=== PATIENT | female | born 1970 | race Caucasian/White ===

== ENCOUNTER 2021-02-01 10:27 | Outpatient (REF) | payer OTHER, SELFPAY ==
[2021-02-01 10:34] LABS: MANUAL DIFF FLAG NO
[2021-02-01 10:38] LABS: Basophils Percent Auto 0.7 % (0-2); Eosinophils Absolute Auto 0.3 X10*3/uL (0.0-0.4); Eosinophils Percent Auto 4.6 % (0-4); Hematocrit 42.3 % (37-47); Hemoglobin 14.4 g/dl (12.0-16.0); Imm Gran Abs Auto 0.02 X10*3/uL (0.00-0.03); Imm Gran Pct Auto 0.4 % (0.0-0.4); Lymphocytes Absolute Auto 1.7 X10*3/uL (1.2-4.9); Lymphocytes Percent Auto 30.5 % (20-40); Mean Corpuscular Hemoglobin 30.3 pg (27.0-33.0); Mean Corpuscular Volume 89.1 fL (80-98); Mean Platelet Volume 10.9 fL (9.4-12.3); Monocytes Absolute Auto 0.4 X10*3/uL (0.1-1.2); Monocytes Percent Auto 7.9 % (2-11); Neutrophils Absolute Auto 3.1 X10*3/uL (2.0-8.3); Neutrophils Percent Auto 55.9 % (45-73); Platelet Count 241 X10*3/uL (160-400); Red Blood Count 4.75 X10*6/uL (4.20-5.50); Red Cell Distribution Width 11.7 % (11.0-16.0); White Blood Count 5.5 X10*3/uL (4.8-10.8)
[2021-02-01 10:53] LABS: Glucose Urine UA NEG (NEG); Leukocyte Esterase Urine NEG (NEG); Nitrite Urine NEG (NEG); Specific Gravity - Urine 1.025 (1.005-1.025); Urine Blood NEG (NEG); Urine Ketones NEG (NEG); Urine Protein NEG (NEG-TRACE)
[2021-02-01 11:10] LABS: Appearance Urine CLEAR; Color Urine YELLOW
[2021-02-01 11:24] LABS: Alanine Aminotransferase 18 U/L (0-31); Albumin Level 4.4 g/dL (3.5-5.0); Alkaline Phosphatase 57 U/L (39-117); Anion Gap 13 (12-20); Aspartate Amino Transferase 16 U/L (5-31); Bilirubin Total 0.6 mg/dL (0.0-1.0); Blood Urea Nitrogen 14 mg/dL (9-16); Calcium 8.8 mg/dL (8.4-10.2); Carbon Dioxide 24 mmol/L (22-29); Chloride 107 mmol/L (96-108); Cholesterol 212 mg/dL; Estimated Glomerular Filt Rate > 60; Glucose Fasting 107 mg/dL (60-99); HDL Cholesterol 57 mg/dL; LDL Cholesterol Calculated 134 mg/dl; Sodium 140 mmol/L (135-145); Total Protein 6.7 g/dL (6.5-8.0); Triglycerides 107 mg/dL
== END 2021-02-01 10:28 | disposition home or self-care (01) ==
LOC: HO.LNP 10:27
PROVIDERS: PCP Internal Medicine; Visit Provider Internal Medicine
DX: Z00.00 Encounter for general adult medical examination without abnormal findings (principal)
CPT/HCPCS: 80053; 80061; 81003; 85025

== ENCOUNTER 2022-02-10 10:48 | Outpatient (REF) | payer OTHER, SELFPAY ==
[2022-02-10 10:54] LABS: MANUAL DIFF FLAG NO
[2022-02-10 11:42] LABS: Basophils Percent Auto 0.8 % (0-2); Eosinophils Absolute Auto 0.2 X10*3/uL (0.0-0.4); Eosinophils Percent Auto 4.9 % (0-4); Hematocrit 43.7 % (37.0-47.0); Hemoglobin 14.6 g/dl (12.0-16.0); Imm Gran Abs Auto 0.01 X10*3/uL (0.00-0.03); Imm Gran Pct Auto 0.3 % (0.0-0.4); Lymphocytes Absolute Auto 1.4 X10*3/uL (1.2-4.9); Lymphocytes Percent Auto 38.5 % (20-40); Mean Corpuscular HGB Conc 33.4 g/dl (31.0-35.0); Mean Corpuscular Hemoglobin 30.4 pg (27.0-33.0); Mean Corpuscular Volume 90.9 fL (80.0-98.0); Mean Platelet Volume 11.1 fL (9.4-12.3); Monocytes Absolute Auto 0.3 X10*3/uL (0.1-1.2); Monocytes Percent Auto 7.9 % (2-11); Neutrophils Absolute Auto 1.7 x10*3/uL (2.0-8.3); Neutrophils Percent Auto 47.6 % (45-73); Platelet Count 214 X10*3/uL (160-400); Red Blood Count 4.81 X10*6/uL (4.20-5.50); White Blood Count 3.7 X10*3/uL (4.8-10.8)
[2022-02-10 11:43] LABS: Appearance Urine CLEAR; Color Urine YELLOW; Glucose Urine UA NEG (NEG); Leukocyte Esterase Urine 1+ (NEG); Nitrite Urine NEG (NEG); Specific Gravity - Urine 1.025 (1.005-1.025); Urine Blood NEG (NEG); Urine Ketones NEG (NEG); Urine Protein NEG (NEG-TRACE)
[2022-02-10 11:52] LABS: Alanine Aminotransferase 24 U/L (0-31); Albumin Level 4.3 g/dL (3.5-5.0); Alkaline Phosphatase 49 U/L (39-117); Anion Gap 10 (12-20); Aspartate Amino Transferase 18 U/L (5-31); Bilirubin Total 0.9 mg/dL (0.0-1.0); Blood Urea Nitrogen 14 mg/dL (9-16); Calcium 9.5 mg/dL (8.4-10.2); Carbon Dioxide 27 mmol/L (22-29); Chloride 107 mmol/L (96-108); Cholesterol 221 mg/dL; Estimated Glomerular Filt Rate > 60; Glucose Fasting 109 mg/dL (60-99); HDL Cholesterol 49 mg/dL; LDL Cholesterol Calculated 155 mg/dl; Potassium 4.1 mmol/L (3.3-5.1); Sodium 140 mmol/L (135-145); Total Protein 6.7 g/dL (6.5-8.0); Triglycerides 87 mg/dL
[2022-02-10 12:13] LABS: Squamous Epithelial Cell Urine 2+ /LPF
[2022-02-10 12:14] LABS: Bacteria Urine 2+ /LPF
[2022-02-10 12:15] LABS: RBC Urine 0 /HPF (0)
== END 2022-02-10 10:49 | disposition home or self-care (01) ==
LOC: HO.LNP 10:48
PROVIDERS: Visit Provider Internal Medicine
DX: Z00.00 Encounter for general adult medical examination without abnormal findings (principal); I47.2 Ventricular tachycardia
CPT/HCPCS: 80053; 80061; 81001; 81003; 85025

== ENCOUNTER 2023-06-01 10:50 | Outpatient (REF) | payer OTHER, SELFPAY ==
[2023-06-01 10:53] LABS: MANUAL DIFF FLAG NO
[2023-06-01 11:24] LABS: Appearance Urine Clear; Color Urine Yellow; Glucose Urine UA Negative (Negative); Leukocyte Esterase Urine Trace (Negative); Nitrite Urine Negative (Negative); UMIC TRIGGER UACC YES; Urine Blood Negative (Negative); Urine Ketones Negative (Negative); Urine Protein Negative (Neg-Trace)
[2023-06-01 11:28] LABS: Bacteria Urine None Seen (None Seen); Basophils Percent Auto 0.7 % (0-2); Eosinophils Absolute Auto 0.2 X10*3/uL (0.0-0.4); Eosinophils Percent Auto 4.6 % (0-4); Hematocrit 43.7 % (37.0-47.0); Hemoglobin 14.4 g/dl (12.0-16.0); Hyaline Casts Urine 0-2 /LPF (0-2); Imm Gran Abs Auto 0.01 X10*3/uL (0.00-0.03); Imm Gran Pct Auto 0.2 % (0.0-0.4); Lymphocytes Absolute Auto 1.5 X10*3/uL (1.2-4.9); Lymphocytes Percent Auto 33.2 % (20-40); Mean Corpuscular Hemoglobin 30.1 pg (27.0-33.0); Mean Corpuscular Volume 91.2 fL (80.0-98.0); Mean Platelet Volume 11.5 fL (9.4-12.3); Monocytes Absolute Auto 0.4 X10*3/uL (0.1-1.2); Monocytes Percent Auto 8.1 % (2-11); Neutrophils Absolute Auto 2.4 x10*3/uL (2.0-8.3); Neutrophils Percent Auto 53.2 % (45-73); Platelet Count 200 X10*3/uL (160-400); RBC Urine 0-2 /HPF (0-2); Red Blood Count 4.79 X10*6/uL (4.20-5.50); Red Cell Distribution Width 11.9 % (11.0-16.0); Squamous Epithelial Cell Urine 0-2 /HPF (0-2); WBC Urine 0-5 /HPF (0-5); White Blood Count 4.6 X10*3/uL (4.8-10.8)
[2023-06-01 12:26] LABS: Alanine Aminotransferase 14 U/L (0-31); Albumin Level 4.3 g/dL (3.5-5.0); Alkaline Phosphatase 48 U/L (39-117); Anion Gap 11 (12-20); Aspartate Amino Transferase 15 U/L (5-31); Bilirubin Total 0.4 mg/dL (0.0-1.0); Blood Urea Nitrogen 16 mg/dL (9-16); Calcium 9.8 mg/dL (8.4-10.2); Carbon Dioxide 28 mmol/L (22-29); Chloride 107 mmol/L (96-108); Cholesterol 193 mg/dL; Estimated Glomerular Filt Rate > 60; Glucose Fasting 109 mg/dL (60-99); HDL Cholesterol 55 mg/dL; LDL Cholesterol Calculated 121 mg/dl; Potassium 4.6 mmol/L (3.3-5.1); Sodium 141 mmol/L (135-145); Total Protein 6.8 g/dL (6.5-8.0); Triglycerides 86 mg/dL
== END 2023-06-01 10:51 | disposition home or self-care (01) ==
LOC: HO.LNP 10:50
PROVIDERS: Visit Provider Internal Medicine
DX: Z00.00 Encounter for general adult medical examination without abnormal findings (principal); D70.9 Neutropenia, unspecified
CPT/HCPCS: 80053; 80061; 81001; 85025

== ENCOUNTER 2024-06-03 10:35 | Outpatient (REF) | payer OTHER, SELFPAY ==
[2024-06-03 10:37] LABS: MANUAL DIFF FLAG NO
[2024-06-03 10:43] LABS: Basophils Percent Auto 0.5 % (0-2); Eosinophils Absolute Auto 0.4 X10*3/uL (0.0-0.4); Eosinophils Percent Auto 6.7 % (0-4); Hematocrit 42.7 % (37.0-47.0); Hemoglobin 14.4 g/dl (12.0-16.0); Imm Gran Abs Auto 0.01 X10*3/uL (0.00-0.03); Imm Gran Pct Auto 0.2 % (0.0-0.4); Lymphocytes Absolute Auto 1.5 X10*3/uL (1.2-4.9); Mean Corpuscular HGB Conc 33.7 g/dl (31.0-35.0); Mean Corpuscular Hemoglobin 30.2 pg (27.0-33.0); Mean Corpuscular Volume 89.5 fL (80.0-98.0); Mean Platelet Volume 10.9 fL (9.4-12.3); Monocytes Absolute Auto 0.5 X10*3/uL (0.1-1.2); Monocytes Percent Auto 7.9 % (2-11); Neutrophils Absolute Auto 3.5 x10*3/uL (2.0-8.3); Neutrophils Percent Auto 59.7 % (45-73); Platelet Count 235 X10*3/uL (160-400); Red Blood Count 4.77 X10*6/uL (4.20-5.50); Red Cell Distribution Width 12.6 % (11.0-16.0); White Blood Count 5.8 X10*3/uL (4.8-10.8)
[2024-06-03 10:53] LABS: Appearance Urine Cloudy; Color Urine Yellow; Glucose Urine UA Negative (Negative); Leukocyte Esterase Urine Moderate (2+) (Negative); Nitrite Urine Negative (Negative); PH 6.5 (5.0-9.0); UMIC TRIGGER UACC YES; Urine Blood Negative (Negative); Urine Ketones Negative (Negative); Urine Protein Negative (Neg-Trace)
[2024-06-03 10:57] LABS: Bacteria Urine Trace (None Seen); Hyaline Casts Urine 0-2 /LPF (0-2); RBC Urine 0-2 /HPF (0-2); UACC Culture Trigger YES
[2024-06-03 10:59] LABS: Alanine Aminotransferase 23 U/L (0-31); Albumin Level 4.4 g/dL (3.5-5.0); Alkaline Phosphatase 65 U/L (39-117); Anion Gap 11 (12-20); Aspartate Amino Transferase 19 U/L (5-31); Bilirubin Total 0.7 mg/dL (0.0-1.0); Blood Urea Nitrogen 9 mg/dL (9-16); Calcium 10.1 mg/dL (8.4-10.2); Carbon Dioxide 29 mmol/L (22-29); Chloride 106 mmol/L (96-108); Cholesterol 203 mg/dL (<200); Estimated Glomerular Filt Rate > 60; Glucose Random 104 mg/dL (60-115); HDL Cholesterol 60 mg/dL (>40); LDL Cholesterol Calculated 122 mg/dL (<100); Potassium 4.1 mmol/L (3.3-5.1); Sodium 142 mmol/L (135-145); Total Protein 6.6 g/dL (6.5-8.0); Triglycerides 108 mg/dL (<150)
== END 2024-06-03 10:36 | disposition home or self-care (01) ==
LOC: HO.LNP 10:35
PROVIDERS: Visit Provider Internal Medicine
DX: Z00.00 Encounter for general adult medical examination without abnormal findings (principal); D70.9 Neutropenia, unspecified
CPT/HCPCS: 80053; 80061; 81001; 85025; 87086

== ENCOUNTER 2024-11-08 10:55 | Outpatient (AMB) | payer MEDICARE, SELFPAY ==
--- NOTE | 2024-11-08 11:01 | A.OFFVIS_ITS ---
Vital Signs 11/08/24 11:07 Height 5 ft 1 in Weight 130 lb 1.164 oz BMI 24.6 BP 124/76 Blood Pressure Location Rt brachial Position Sitting Pulse 60 Pulse Source Pulse Oximeter Pulse Oximetry (%) 99 Oxygen Delivery Method Room Air Intake Visit Reasons: Routine colo consult Intake Note: NEW PATIENT Reason; Routine/Initial Screening Prior hx of colo/egd? N Concerns/Questions? No significant concerns per pt. Allergies No Known Allergies Allergy (Verified 11/08/24 11:01) HPI HPI Routine colo consult: Details: 54 year old? female with past medical history of asthma, solitary kidney is here today for pre colonoscopy screening.? Patient was sent to us by his/her PCP.? This is her first colonoscopy screening.? Patient denies any gastrointestinal symptoms in the past or at present.? Denies any personal or family history of gastrointestinal disease, colon polyps, or CRC.? History of tachycardia after anesthesia. Patient does not remember what medication she received.? Negative for history of sleep apnea.? Denies any history of cardiac, pulmonary, or hepatic disease.?? No history of infectious? diseases like hepatitis A, B, C, HIV or tuberculosis.? Patient is not on any anticoagulation [facility] Medical History (Updated 11/08/24 @ 11:29 by Mary Jane Garcia [facility]) Solitary kidney, congenital Asthma Surgical History History of lithotripsy H/O section Social History Alcohol intake: current Comment: 2-3 / week Patient Tobacco Use Status: Never used Tobacco Use of substances other than those prescribed or required for medical reasons: No Physical Exam Vital Signs: Last Vital Signs Pulse 60 11/08/24 11:07 BP 124/76 11/08/24 11:07 Pulse Ox 99 11/08/24 11:07 Oxygen Delivery Method Room Air 11/08/24 11:07 BMI result Body Mass Index 22.5 Assessment & Plan Assessment & Plan (1) Screen for colon cancer: Code(s): Z12.11 - Encounter for screening for malignant neoplasm of colon Plan Patient denies any GI, cardiac or respiratory symptoms.? ? Denies any history of sleep apnea.? No history infectious diseases in the past or present.? Not on any anticoagulation therapy.? No family or personal history of colon cancer or polyps.? Patient denies melena, hematochezia, unintentional weight loss or ribbon like stools.? Discussed at length the pre-procedure,? prep, diet & medications as well as what to expect prior, during and after the procedure.?? Stressed the importance of good bowel prep.? Recommended the use of Vaseline or Calmoseptine OTC & baby wipes with bowel movements to promote comfort.? ?Patient verbalizes understanding and agrees to plan of care.? She was given the opportunity to ask questions and all questions answered.? We will see her after the procedure.? Medications: New bisacodyl (Dulcolax (bisacodyl)) take 4 tabs at noon the day before your colonoscopy 20 mg (4 x 5 mg) PO ONCE 1 day 4 tabs 0RF Z12.11 - Encounter for screening for malignant neoplasm of colon polyethylene glycol 3350 (Miralax) As directed by gastroenterology department at [facility] 238 grams PO ONCE 238 grams 0RF Z12.11 - Encounter for screening for malignant neoplasm of colon Coding Level of Care Code New Pt Level 3 (48869) Diagnoses Screen for colon cancer Z12.11 Time Spent (min) 40 Comment 30 minutes spent with patient and additional 10 minutes spent reviewing her records
[2024-11-08 11:07] VITALS: BP 124/76; PULSE 60; O2SAT 99; BMI 24.6
== END 2024-11-08 14:19 | disposition home or self-care (01) ==
PROVIDERS: PCP Internal Medicine; Visit Provider Nurse Practitioner Family
DX: Z01.818 Encounter for other preprocedural examination (principal); Z12.11 Encounter for screening for malignant neoplasm of colon
CPT/HCPCS: 99024

== ENCOUNTER → 2024-11-08 10:55 | Outpatient (BNVA) | payer MEDICARE, SELFPAY | PROVIDERS: PCP Internal Medicine; Visit Provider Nurse Practitioner Family | DX: Z12.11 Encounter for screening for malignant neoplasm of colon (principal) | CPT/HCPCS: 99212 ==

== ENCOUNTER 2025-08-08 09:52 | Outpatient (REF) | payer MEDICARE, SELFPAY ==
--- OUTSIDE RECORDS SUMMARY | 2023-06-11 10:54 | XMS_ITS | Encounter Summary ---
Author Organization [facility] Address [address] [facility] [address] [place] [phone] Phone Care Team Providers Care Fabric Normalizer Name Role Phone Shahriar Wheeler MD Primary Care Provider Encounter Details Date Type Department Care Team (Late st Contact Info) Description 06/11/2023 10:54 AM EDT Hospital Encounter [facility] [address] [place] [address] [phone] Niharika Rm PA-C [address] [place] [phone] Social History Tobacco Use Types Packs/Day Years Used Date Smoking Tobacco: Never Assessed Education Answer Date Recorded Are you interested in more education? Not on alisha e 02/18/2023 Are you concerned about learning? Not on file 02/18/2023 No 02/18/2023 No 02/18/2023 Digital Access Answer Date Recorded No 03/19/2023 No 03/19/2023 Reliable internet access at home? Not on file 03/19/2023 Device with a working camera? Not on file Comments Unknown Sex and Gender Information Value Date Recorded Sex Assigned at Not on file Legal Sex Female 9:38 AM EDT Gender Identity Not on file Sexual Orientation Not on file documented as of this encounter Plan of Treatment Not on file documented as of this encounter Procedures Procedure Name Priority Date/Time Associated Diagnosis Comments XR CHEST PA AND LATERAL 2 VIEWS Routine 06/11/2023 11:01 AM EDT Acute respiratory distress documented in this encounter Results * XR CHEST PA AND LATERAL 2 VIEWS (06/11/2023 11:01 AM EDT) Anatomical Region Laterality Modality Chest Computed Radiogr aphy 06/11/2023 11:3 0 AM EDT Impressions 06/11/2023 11:33 AM EDT No acute abnormality. ATTESTATION: Fanny Romero as teaching physician, have reviewed the images for this case and if necessary edited the report originally created by Ron Loza. Narrative 06/11/2023 11:33 AM EDT XR CHEST PA AND LATERAL 2 VIEWS COMPARISON: None FINDINGS: Devices/Tubes/Lines: None. Lungs: No focal consolidation or pulmonary edema. Pleura: No pleural effusion or pneumothorax. Heart/Mediastinum: Normal heart size. Bones/Soft Tissues: No acute skeletal abnormality. Procedure Note Fanny Troy MD - 06/11/2023 XR CHEST PA AND LATERAL 2 VIEWS COMPARISON: None FINDINGS: Devices/Tubes/Lines: None. Lungs: No focal consolidation or pulmonary edema. Pleura: No pleural effusion or pneumothorax. Heart/Mediastinum: Normal heart size. Bones/Soft Tissues: No acute skeletal abnormality. IMPRESSION: No acute abnormality. ATTESTATION: Fanny Romero as teaching physician, have reviewed theimages for this case and if necessary edited the report originally createdby Ron Loza. Niharika Rm PA-C IMG XR CHEST Final Resul t documented in this encounter Visit Diagnoses Not on filedocumented in this encounter Care Teams Fabric Normalizer Relationship Specialty Start Date End Date Shahriar Wheeler MD [address] [place] [address] Dr Sánchez, JEREMY [address] PCP - General Internal Medicine 03/20/22 documented as of this encounter Additional Source Comments The information contained in this document represents components of the legal health record. It is not the complete legal health record.[facility]
--- OUTSIDE RECORDS SUMMARY | 2024-06-03 03:15 | XMS_ITS ---
Author Organization Shahriar Wheeler MD Address [address] [place], [place] [phone] Care Team Providers Care Chicken Boner Name Role Phone Shahriar Wheeler Primary Care Provider Results Component Value Reference Range Notes Complete Blood Count Auto Di ff Reviewed date:06/03/2024 12:47:21 PM Interpretation: Performing Lab:[facility], [address] [place] [phone] Notes/Report: White Blood Count 5.8 4.8-10.8 X10*3/uL Red Blood Count 4.77 4.20-5.50 X10*6/uL Hemoglobin 14.4 12.0-16.0 g/dl Hematocrit 42.7 37.0-47.0 % Mean Corpuscular Volume 89.5 80.0-98.0 fL Mean Corpuscular Hemoglobin 30.2 27.0-33.0 pg Mean Corpuscular HGB Conc 33.7 31.0-35.0 g/dl Red Cell Distribution Width 12.6 11.0-16.0 % Platelet Count 235 160-400 X10*3/uL Mean Platelet Volume 10.9 9.4-12.3 fL Neutrophils Percent Auto 59.7 45-73 % Imm Gran Pct Auto 0.2 0.0-0.4 % Lymphocytes Percent Auto 25.0 20-40 % Monocytes Percent Auto 7.9 2-11 % Eosinophils Percent Auto 6.7 0-4 % Basophils Percent Auto 0.5 0-2 % NRBC Pct Auto 0.0 0.0-0.2 /100WBC Neutrophils Absolute Auto 3.5 2.0-8.3 x10*3/u L Imm Gran Abs Auto 0.01 0.00-0.03 X10*3/uL Lymphocytes Absolute Auto 1.5 1.2-4.9 X10*3/u L Monocytes Absolute Auto 0.5 0.1-1.2 X10*3/uL Eosinophils Absolute Auto 0.4 0.0-0.4 X10*3/u L Basophils Absolute Auto 0.0 0.0-0.2 X10*3/uL NRBC Abs Auto 0.000 0.0-0.012 X10*3/uL Lipid Panel Reviewed date:06/03/2024 12:40:27 PM Interpretation: Performing Lab:[address] [phone] Notes/Report: Triglycerides 108 <150 mg/dL Desirable Triglyceride: less than 150 mg/dL Borderline High Triglyceride 150-199 mg/dL High Triglyceride: 200-499 mg/dL Very High Triglyceride: greater than or equal to 5OO mg/dL Cholesterol 203 <200 mg/dL Desirable Cholesterol: less than 200 mg/dL Borderline High Cholesterol: 200-239 mg/dL High Cholesterol: greater than 239 mg/dL LDL Cholesterol Calculated 122 <100 mg/dL Desirable LDL: less than 100 mg/dL Near Optimal/Above Optimal LDL: 110-129 mg/dL Borderline High LDL: 130-159 mg/dL High LDL: 160-189 mg/dL Very High LDL: greater than or equal to 190 mg/dL HDL Cholesterol 60 >40 mg/dL Desirable HDL: greater than 40 mg/dL Note: This HDL assay may give artificially low results in patients with liver disease. UA ClnCatch+Micro w/rflx Cul t Reviewed date:06/03/2024 05:00:21 PM Interpretation: Performing Lab:[address] [phone] Notes/Report: Urine, Clean Catch Color Urine Yellow Appearance Urine Cloudy PH 6.5 5.0-9.0 Glucose Urine UA Negative Negative mg/dL Urine Blood Negative Negative Specific [place] - Urine 1.020 1.005-1.025 Urine Protein Negative Neg-Trace mg/dL Urine Ketones Negative Negative mg/dL Nitrite Urine Negative Negative Leukocyte Esterase Urine Moderate (2+) Negative RBC Urine 0-2 0-2 /HPF WBC Urine 11-20 0-5 /HPF Squamous Epithelial Cell Urine 3-5 0-2 /HPF Bacteria Urine Trace None Seen Hyaline Casts Urine 0-2 0-2 /LPF REASON FOR VISIT yearly labs Encounters Encounter Location Date Provider Diagnosis Shahriar Wheeler MD [address] [place], [place] [phone] 06/03/2024 Shahriar Wheeler Blood tests for routine general physical examination Z00.00 and Neutropenia D70.9 Assessments Encounter Date Diagnosis (ICD Code) Assessment Notes Treatment Notes Treatment Clinical Notes Section Notes 06/03/2024 Blood tests for routine general physical examination (ICD-10 - Z00.00) 06/03/2024 Neutropenia (ICD-10 - D70.9) Plan Of Treatment Next Appt Details Provider Name:Shahriar Lagunas ier, 08/19/2025 02:30:00 PM, [address], [address], [place], [place], [phone], Progress Notes * Imelda CORREA SDOB:1969 (55 yo F)Acc No.[id number]:06/03/2024 Progress Note Patient: Imelda FISHER Provider: Kitty Wheeler MD :1970 A ge:53 Y S ex:Female Date:06/03/2024 Address: [address], [place], [id number] Subjective: * Chief Complaints: * 1 . Yearly labs. * Medical History: Objective: * Vitals: Assessment: * Assessment: 1. B lood tests for routine general physical examination - Z00.00 (Primary) 2 .?Neutropenia - D70.9 Plan: * Treatment: 2. N eutropenia L AB: Comprehensive Tucker. Panel Fast (Order Cancelled) L AB: Complete Blood Count Auto Diff (Collection Date & Time - 06/03/2024 07:15 AM) L AB: Lipid Panel (Collection Date & Time - 06/03/2024 07:15 AM) L AB: UA ClnCatch+Micro w/rflx Cult (Collection Date & Time - 06/03/2024 07:15 AM) * Procedure Codes: 3 6415 VENIPUNCT, ROUTINE* * * The named appointment provid er may or may not be the originator of this progress note, and it is not deemed complete until electronically signed by the appointment provider. Sign off status: Pending * Provider: Kitty Wheeler MD Date: 0 06/03/2024 Generated for Luz Marina floyd/Maria Dolores/Wendy on: 1 11:29 AM EDT
--- OUTSIDE RECORDS SUMMARY | 2024-06-21 10:30 | XMS_ITS ---
Author Organization Shahriar Wheeler MD Address [address] [place] [id number] Care Team Providers Care Stereotype Molder Name Role Phone Shahriar Wheeler Primary Care Provider [phone] Allergies No Known Allergies Reason For Referral [...] Haskins 07/08/2024 08:26:45 AM EDT > [facility] , they reached out to cynthia [...] Problem Status W/U Status Risk Notes Problem [id number] Hot flashes due to menopause (N95.1) Active confirmed Vital Signs Blood pressure systolic 124 mm Hg 06/21/20 24 Blood pressure diastolic 70 mm Hg 024 Height 61 in 06/21/2024 Weight 130 lbs 06/21/2024 BMI 24.56 kg/m2 06/21/2024 weight is up 10 pounds since 06-15-23 Encounters Encounter Location Date Provider Diagnosis Shahriar Wheeler MD [address] [place] [address] Drive [address] [place], [place] [id number] 06/21/2024 Shahriar Wheeler Annual physical exam Z00.00 [...] for colonoscopy in winter/ REFERRAL FAXED TO [facility] FOR NEW PATIENT APPT 06/21/2024 Mild intermittent asthma with acute exacerbation (ICD-10 - J45.21) no issues, is stable, will continue current regiment 06/21/2024 At high risk for breast cancer (ICD-10 - Z91.89) [facility] with mri and mammo 06/21/2024 Hot flashes [...] for colonoscopy in winter/ REFERRAL FAXED TO [facility] FOR NEW PATIENT APPT Mild intermittent asthma wit h acute exacerbation no issues, is stable, will continue current regiment At high risk for breast cancer followed at [facility] with mri and mammo Hot flashes due to menopause can't take estrogen but if she wants will try gabapentin Depression screening negative screen Referrals Referral Date Details 06/21/2024 06/21/2024, SCREEN F OR COLON CANCER, [facility] Next Appt Details Follow Up: 1 Year, Reason: Provider Name:Shahriar salomon, 08/19/2025 02:30:00 PM, [address] [place] [address], [address], [place], [place], [id number], Progress Notes * Imelda CORREA SDOB:1969 (53 yo F)Acc No.[id number]:06/21/2024 Progress Notes Patient: Georgia russellsilvia Imelda Israel Provider: Kitty Wheeler MD :1970 A ge:53 Y S ex:Female Date:06/21/2024 Address:[address], [place], [id number] Subjective: * Chief Complaints: * A nnual [...] T obacco Use: T obacco Use/Smoking P atlexis is a n onsmoker, A dditional Findings: [...] Children: yes. no Community involvements. Exercise: yes, iking, [place] for 30 minutes cycling class cardio class. [...] mg/dL Urine Blood Negative Negative - Specific [place] - Urine 1.020 1.005-1.025 - Urine Protein [...] masses palpable. RECTAL EXAM: d one by metal temperer. FEMALE GENITOURINARY: d one by metal temperer. EXTREMITIES: n o clubbing, cyanosis, or edema. [...] risk for breast cancer Notes: followed at [facility] with mri and mammo. 4. H ot [...] 0 06/21/2024 Generated for Luz Marina floyd/Maria Dolores/Markitting on: 11:29 AM EDT History and Physical Notes * HPI [...] mass, no lump RECTAL EXAM: done by metal temperer FEMALE GENITOURINARY: done by metal temperer ORAL CAVITY: mucosa moist Consultation Request Notes Referral Date Referring Provider Referred Provider Not es 06/21/2024 Shahriar Wheeler Tuyyab SCREEN FO R COLON CANCER
--- OUTSIDE RECORDS SUMMARY | 2025-06-26 04:45 | XMS_ITS ---
Author Organization Shahriar Wheeler MD Address [address] [place], [place] [phone] Care Team Providers Care Patient Care Specialist Name Role Phone Shahriar Wheeler Primary Care Provider REASON FOR VISIT FASTING LABS Encounters Encounter Location Date Provider Diagnosis Shahriar Wheeler MD [address] [place] [address] Drive [address] [place], [place] [phone] 06/26/2025 Shahriar Wheeler Blood tests for routine general physical examination Z00.00 and Neutropenia D70.9 Assessments Encounter Date Diagnosis (ICD Code) Assessment Notes Treatment Notes Treatment Clinical Notes Section Notes 06/26/2025 Blood tests for routine general physical examination (ICD-10 - Z00.00) 06/26/2025 Neutropenia (ICD-10 - D70.9) Plan Of Treatment Pending Test Test Name Order Date Complete Blood Count Auto Diff 5 Comprehensive Oracle. Panel Fast 5 Lipid Panel 06/26/2025 UA ClnCatch+Micro w/rflx Cult 06/26/2025 Next Appt Details Provider Name:Shahriar Lagunas ier, 08/19/2025 02:30:00 PM, [address], [address], [place], [place], [phone], Progress Notes * Imelda CORREA SDOB:1969 (55 yo F)Acc No.[id number]:06/26/2025 Progress Note Patient: Imelda FISHER Provider: Kitty Wheeler MD :1970 A ge:54 Y S ex:Female Date:06/26/2025 Address: [address], [place], [id number] Subjective: * Chief Complaints: * 1 . FASTING LABS. * Medical History: Objective: * Vitals: Assessment: * Assessment: 1. B lood tests for routine general physical examination - Z00.00 (Primary) 2 .?Neutropenia - D70.9 Plan: * Treatment: 2. N eutropenia L AB: Complete Blood Count Auto Diff L AB: Comprehensive [place]. Panel Fast L AB: Lipid Panel L AB: UA ClnCatch+Micro w/rflx Cult * * The named appointment provid er may or may not be the originator of this progress note, and it is not deemed complete until electronically signed by the appointment provider. Sign off status: Pending * Provider: Kitty Wheeler MD Date: 0 06/26/2025 Generated for Luz Marina floyd/Maria Dolores/Markitting on: 1 11:29 AM EDT
--- OUTSIDE RECORDS SUMMARY | 2025-06-27 12:30 | XMS_ITS ---
Author Organization Shahriar Wheeler MD Address [address] [place], [place] [phone] Care Team Providers Care Speech And Hearing Clinic Director Name Role Phone Shahriar Wheeler Primary Care Provider Allergies No Known Allergies REASON FOR VISIT ANNUAL EXAM Social History Tobacco Use: Social History Observation [...] Never (0 point) Points 1 Interpretation Negative Encounters Encounter Location Date Provider Diagnosis Shahriar Wheeler MD [address] [place], [place] [phone] 06/27/2025 Shahriar Wheeler Plan Of Treatment Next Appt Details Provider Name:Shahriar salomon, 08/19/2025 02:30:00 PM, [address], [address], [place], [place], [phone], Progress Notes * Imelda CORREA SDOB:1969 (55 yo F)Acc No.[id number]:06/27/2025 Progress Notes Patient: Imelda FISHER Provider: Kitty Wheeler MD :1970 A ge:54 Y S ex:Female Date:06/27/2025 Address: [address], [place], [id number] Subjective: * Chief Complaints: * 1 . ANNUAL EXAM. * HPI: D epression Screening: PHQ-9 L [...] N one. S ymptom(s): patient is a 54 yo female here for annual visit with review of recent labs and follow up of chronic issues. * Medical History: H x of kidney stones, Going to get colonoscopy evan 2022. * Family History: F ather: 70 yrs, [...] frequency:, 1-2 cups per day. Children: yes. Community involvements: no. Exercise: yes, iking, [place] for 30 minutes cycling class cardio class. Home smoke detector use: yes. Housing: owning. Living with: spouse. Marital status: . Occupation: weeks/months/years, works full-time. Travel outside of the [place]: no. * Allergies: N .K.D.A. Objective: * Vitals: Assessment: Plan: * Treatment: * * The named appointment provid er may or may not be the originator of this progress note, and it is not deemed complete until electronically signed by the appointment provider. Sign off status: Pending * Provider: Kitty Wheeler MD Date: 0 06/27/2025 Generated for Luz Marina floyd/Maria Dolores/Markitting on: 1 11:29 AM EDT History and Physical Notes * HPI (History of Present Illness) Category Sub-Category Detail Notes Category Not es Symptom(s) patient is a 54 yo female here for annual visit with review of recent labs and follow up of chronic issues Depression Screening PHQ-9 Little inte rest or [...]
--- OUTSIDE RECORDS SUMMARY | 2025-08-08 04:15 | XMS_ITS ---
Author Organization Shahriar Wheeler MD Address [address] [place], [place] [phone] Care Team Providers Care Marketing Outreach Coordinator Name Role Phone Shahriar Wheeler Primary Care Provider Results Component Value Reference Range Notes Complete Blood Count Auto Di ff (Not yet reviewed by provider) Interpretation: Performing Lab:[facility], [address] [place] [phone] Notes/Report: White Blood Count 5.2 4.8-10.8 X10*3/uL Red Blood Count 5.08 4.20-5.50 X10*6/uL Hemoglobin 15.0 12.0-16.0 g/dl Hematocrit 44.9 37.0-47.0 % Mean Corpuscular Volume 88.4 80.0-98.0 fL Mean Corpuscular Hemoglobin 29.5 27.0-33.0 pg Mean Corpuscular HGB Conc 33.4 31.0-35.0 g/dl Red Cell Distribution Width 11.9 11.0-16.0 % Platelet Count 237 160-400 X10*3/uL Mean Platelet Volume 10.6 9.4-12.3 fL Neutrophils Percent Auto 54.3 45-73 % Imm Gran Pct Auto 0.4 0.0-0.4 % Lymphocytes Percent Auto 31.1 20-40 % Monocytes Percent Auto 7.8 2-11 % Eosinophils Percent Auto 5.8 0-4 % Basophils Percent Auto 0.6 0-2 % NRBC Pct Auto 0.0 0.0-0.2 /100WBC Neutrophils Absolute Auto 2.8 2.0-8.3 x10*3/u L Imm Gran Abs Auto 0.02 0.00-0.03 X10*3/uL Lymphocytes Absolute Auto 1.6 1.2-4.9 X10*3/u L Monocytes Absolute Auto 0.4 0.1-1.2 X10*3/uL Eosinophils Absolute Auto 0.3 0.0-0.4 X10*3/u L Basophils Absolute Auto 0.0 0.0-0.2 X10*3/uL NRBC Abs Auto 0.000 0.0-0.012 X10*3/uL Lipid Panel (Not yet review ed by provider) Interpretation: Performing Lab:[facility], [address] [place] [phone] Notes/Report: Triglycerides 189 <150 mg/dL Desirable Triglyceride: less than 150 mg/dL Borderline High Triglyceride 150-199 mg/dL High Triglyceride: 200-499 mg/dL Very High Triglyceride: greater than or equal to 5OO mg/dL Cholesterol 244 <200 mg/dL Desirable Cholesterol: less than 200 mg/dL Borderline High Cholesterol: 200-239 mg/dL High Cholesterol: greater than 239 mg/dL LDL Cholesterol Calculated 159 <100 mg/dL Desirable LDL: less than 100 mg/dL Near Optimal/Above Optimal LDL: 110-129 mg/dL Borderline High LDL: 130-159 mg/dL High LDL: 160-189 mg/dL Very High LDL: greater than or equal to 190 mg/dL HDL Cholesterol 48 >40 mg/dL Desirable HDL: greater than 40 mg/dL Note: This HDL assay may give artificially low results in patients with liver disease. REASON FOR VISIT Annual labs Encounters Encounter Location Date Provider Diagnosis Shahriar Wheeler MD [address] [place], [place] [phone] 08/08/2025 Shahriar Wheeler Blood tests for routine general physical examination Z00.00 and Neutropenia D70.9 Assessments Encounter Date Diagnosis (ICD Code) Assessment Notes Treatment Notes Treatment Clinical Notes Section Notes 08/08/2025 Blood tests for routine general physical examination (ICD-10 - Z00.00) 08/08/2025 Neutropenia (ICD-10 - D70.9) Plan Of Treatment Pending Test Test Name Order Date Complete Blood Count Auto Diff 5 Comprehensive [place]. Panel Fast Lipid Panel 08/08/2025 UA ClnCatch+Micro w/rflx Cult 08/08/2025 Next Appt Details Provider Name:Shahriar Lagunas ier, 08/19/2025 02:30:00 PM, [address], [address], [place], [place], [phone], Progress Notes * Imelda CORREA SDOB:1969 (55 yo F)Acc No.[id number]:08/08/2025 Progress Note Patient: Imelda FISHER Provider: Kitty Wheeler MD :1970 A ge:55 Y S ex:Female Date:08/08/2025 Address: [id number] Subjective: * Chief Complaints: * 1 . Annual labs. * Medical History: Objective: * Vitals: Assessment: * Assessment: 1. B lood tests for routine general physical examination - Z00.00 (Primary) 2 .?Neutropenia - D70.9 Plan: * Treatment: 2. N eutropenia L AB: Complete Blood Count Auto Diff (Collection Date & Time - 08/08/2025 08:15 AM) L AB: Comprehensive [place]. Panel Fast L AB: Lipid Panel (Collection Date & Time - 08/08/2025 08:15 AM) L AB: UA ClnCatch+Micro w/rflx Cult * Procedure Codes: 3 6415 VENIPUNCT, ROUTINE* * * The named appointment provid er may or may not be the originator of this progress note, and it is not deemed complete until electronically signed by the appointment provider. Sign off status: Pending * Provider: Kitty Wheeler MD Date: 1 Generated for Luz Marina floyd/Maria Dolores/Markitting on: 11:29 AM EDT
[2025-08-08 09:55] LABS: MANUAL DIFF FLAG NO
[2025-08-08 10:00] LABS: Hematocrit 44.9 % (37.0-47.0); Hemoglobin 15.0 g/dl (12.0-16.0); Imm Gran Abs Auto 0.02 X10*3/uL (0.00-0.03); Imm Gran Pct Auto 0.4 % (0.0-0.4); Lymphocytes Absolute Auto 1.6 X10*3/uL (1.2-4.9); Mean Corpuscular HGB Conc 33.4 g/dl (31.0-35.0); Mean Corpuscular Hemoglobin 29.5 pg (27.0-33.0); Mean Corpuscular Volume 88.4 fL (80.0-98.0); NRBC Abs Auto 0.000 X10*3/uL (0.0-0.012); NRBC Pct Auto 0.0 /100WBC (0.0-0.2); Platelet Count 237 X10*3/uL (160-400); Red Blood Count 5.08 X10*6/uL (4.20-5.50); White Blood Count 5.2 X10*3/uL (4.8-10.8)
[2025-08-08 10:30] LABS: Alanine Aminotransferase 53 U/L (0-31); Albumin Level 4.7 g/dL (3.5-5.0); Alkaline Phosphatase 75 U/L (39-117); Anion Gap 13 (12-20); Aspartate Amino Transferase 32 U/L (5-31); Blood Urea Nitrogen 10 mg/dL (9-16); Calcium 9.8 mg/dL (8.4-10.2); Carbon Dioxide 27 mmol/L (22-29); Chloride 107 mmol/L (96-108); Cholesterol 244 mg/dL (<200); Estimated Glomerular Filt Rate > 60; HDL Cholesterol 48 mg/dL (>40); Potassium 4.3 mmol/L (3.3-5.1); Sodium 143 mmol/L (135-145); Total Protein 6.9 g/dL (6.5-8.0); Triglycerides 189 mg/dL (<150)
--- OUTSIDE RECORDS SUMMARY | 2025-08-08 11:29 | XMS_ITS | Patient Health Record ---
Author Organization Shahriar Wheeler MD Address [address] [place], [place] [phone] Care Team Providers Care Quality Assurance Tester Name Role Phone Shahriar Wheeler Primary Care Provider Allergies No Known Allergies Results Component Value Reference Range Notes Comprehensive Met. Panel (No t yet reviewed by provider) Interpretation: Performing Lab:[facility], [address] [place] [phone] Notes/Report: Sodium 143 135-145 mmol/L Potassium 4.3 3.3-5.1 mmol/L Chloride 107 96-108 mmol/L Carbon Dioxide 27 22-29 mmol/L Anion Gap 13 12-20 Blood Urea Nitrogen 10 9-16 mg/dL Creatinine 0.85 0.5-1.4 mg/dL Estimated Glomerular Filt Rate > 60 Chronic Kidney Disease: Estimated GFR < 60 mL/min/1.73m2 Severe Kidney Disease: Estimated GFR < 15 mL/min/1.73m2 Glucose Random 104 60-115 mg/dL Calcium 9.8 8.4-10.2 mg/dL Bilirubin Total 0.6 0.0-1.0 mg/dL Aspartate Amino Transferase 32 5-31 U/L Alanine Aminotransferase 53 0-31 U/L Total Protein 6.9 6.5-8.0 g/dL Albumin Level 4.7 3.5-5.0 g/dL Alkaline Phosphatase 75 39-117 U/L Complete Blood Count Auto Di ff (Not yet reviewed by provider) Interpretation: Performing Lab:[facility], [address] [place] [phone] Notes/Report: White Blood Count 5.2 4.8-10.8 X10*3/uL [...] 0.000 0.0-0.012 X10*3/uL Lipid Panel (Not yet reviewe d by provider) Interpretation: Performing Lab:[facility], [address] [place] [phone] Notes/Report: Triglycerides 189 <150 mg/dL Desirable Triglyceride: [...] low results in patients with liver disease. Reason For Referral No Information Medications Medication SIG (Take, Route, Frequency, Duration) Notes Start Date End Date Status Ventolin HFA 108 (90 Base) MCG/ACT 1 puff as needed Inhalation every 4 hrs 06/08/2023 Active Albuterol-Ipratropium 2.5-0.5 MG/3ML 3 mL as needed Inhalation every 6 hrs Active Immunizations Vaccine Route Administration Date Status Comme nts Fluarix Quadrivalent IM Intramuscular 11/25/2016 Administe red Fluarix Quadrivalent IM Intramuscular 10/31/2017 Administe red Fluarix Quadrivalent IM Intramuscular 10/18/2019 Administe red Covid Vaccine Unknown 12/18/2020 Administered Moderna Covid Vaccine Unknown 01/15/2021 Administered Moderna Fluarix Quadrivalent IM Intramuscular 08/10/2021 Adminjing red SARS-COV-2 Moderna Unknown 08/16/2021 Administered Fluarix Quadrivalent IM Intramuscular 08/26/2022 Administe red Fluarix Quadrivalent IM Intramuscular 07/14/2023 Adminjing peraza Social History Tobacco Use: Social History Observation [...] Problem Status W/U Status Risk Notes Problem Neutropenia (955721706) Neutropenia (D70.9) Active confirmed Problem 019943383 Mild intermittent asthma with acute exacerbation (J45.21) Active confirmed Problem 20162466 PVT (paroxysmal ventricular tachycardia) (I47.2) Active confirmed Problem 425150776 Hot flashes due to menopause (N95.1) Active confirmed Encounters Encounter Location Date Provider Diagnosis Shahriar Wheeler MD [address] [place] [address] [place] [phone] 08/08/2025 Shahriar Wheeler Blood tests for routine general physical examination Z00.00 and Neutropenia D70.9 Assessments Encounter Date Diagnosis (ICD Code) Assessment Notes Treatment Notes Treatment Clinical Notes Section Notes 08/08/2025 Blood tests for routine general physical examination (ICD-10 - Z00.00) 08/08/2025 Neutropenia (ICD-10 - D70.9) Plan Of Treatment Pending Test Test Name Order Date Complete Blood Count Auto Diff 5 Comprehensive Met. Panel 08/08/2025 Comprehensive [place]. Panel Fast Lipid Panel 08/08/2025 UA ClnCatch+Micro w/rflx Cult 08/08/2025 Future Test Test Name Order Date MM diagnostic mammo BI 06/14/2021 Next Appt Details Provider Name:Shahriar Lagunas ier, 08/19/2025 02:30:00 PM, [address] [place] [address], [address] [facility], [place], [place], [phone], Insurance Providers Payer Name Payer Address Payer Phone Subscriber Number Group Number Insured Name Patient Relationship to Insured Coverage Start Date Coverage End Date [employer] [address] [place], [place] [phone] [id number] Imelda Sorto Self - patient is the insured Medical (General) History Medical History History ICD Code Hx of kidney stones going to get colonoscopy 2022
--- OUTSIDE RECORDS SUMMARY | 2025-08-08 11:29 | XMS_ITS | Clinical Summary ---
Author Organization [facility] Address [address] [facility] [address] [place] [phone] Phone Care Team Providers Care Relay Tester Helper Name Role Phone Shahriar Wheeler MD Primary Care Provider Allergies Active Allergy Reactions Criticality Noted Date Comments Pollen Extracts 04/03/2019 Medications levonorgestreL (MIRENA) 20 mcg/24 hours (7 yrs) 52 mg intrauterine device 1 each by Intrauterine route. Active albuterol 90 mcg/actuation inhaler Inhale 2 puffs into the lungs every 6 (six) hours as needed for wheezing. 8.5 g 2 Active predniSONE (DELTASONE) 20 MG tablet Prednisone 20 mg. Dispense #6. Directions 2 pills each day x3. No refills. Take a small meal half an hour before and with each dose. Take early in the day. 6 tablet 3 Active ipratropium-albu teroL (DUONEB) 0.5-3 mg (2.5 mg base)/3 mL nebulizer solution Take 3 mL by nebulization 4 (four) times a day for 10 days. 3 mL 3 Active Active Problems Problem Noted Date Diagnosed Date Atypical ductal hyperplasia of breast 06/12/2019 Immunizations No known immunizations Social History Tobacco Use Types Packs/Day Years [...] on file Sexual Orientation Not on file Last Filed Vital Signs Vital Sign Reading Time Taken Comments Blood Pressure 116/80 06/11/2023 10:38 AM EDT Pulse 56 06/11/2023 10:38 AM EDT Temperature 36.7 C (98.1 F) 06/11/2023 10:38 AM EDT Respiratory Rate 18 06/11/2023 10:38 AM EDT Oxygen Saturation 100% 06/11/2023 10:38 AM EDT Inhaled Oxygen Concentration - - Weight 53.5 kg (118 lb) 06/11/2023 10:38 AM EDT Height 152.4 cm (5') 06/11/2023 10:38 AM EDT Body Mass Index 23.05 06/11/2023 10:38 AM EDT Plan of Treatment Health Maintenance Due Date Last Done Comments Adult Td,Tdap Booster 1972 LIPID PANEL 1972 DEPRESSION SCREENING 1984 SMOKING Hx and SMOKELESS TOBACCO SCREENING 1985 HEPATITIS C SCREENING 1990 HIV ONE-TIME SCREENING (18-65 YEARS) 1990 PAP SMEAR 1993 MAMMOGRAM 2012 COLOGUARD 2017 COLONOSCOPY 2017 COLORECTAL CANCER SCREENING 2017 FIT TEST 2017 FOBT 2017 SIGMOIDOSCOPY 2017 VIRTUAL COLONOSCOPY 2017 PNEUMOCOCCAL VACCINES (50+ years) (1 of 1 - PCV) 2022 ZOSTER VACCINES (1 of 2) 2022 INFLUENZA VACCINE (#1) 2025 , 08/26/2022, 08/10/2021, Additional history exists COVID-19 VACCINE ( - 2024- season) 2025 07/06/2022, 08/16/2021, 01/15/2021, Additional history exists RSV VACCINE (1 - 1-dose 75+ series) 2047 HEPATITIS A VACCINES Aged Out No long er eligible based on patient's age to complete this topic HIB VACCINES Aged Out No longer eligi ble based on patient's age to complete this topic MENINGOCOCCAL VACCINES (ACWY) Aged Out No longer eligible based on patient's age to complete this topic MENINGOCOCCAL VACCINES (B) Aged Out N o longer eligible based on patient's age to complete this topic Medical Devices Not on file Insurance [facility] PPO EPO [facility] PPO E[facility] PPO EPO [facility] PPO EPO [facility] PPO EPO Care Teams Relay Tester Helper Relationship Specialty Start Date End Date Shahriar Wheeler MD [address] [place] [address] [place] [address] PCP - General Internal Medicine 03/20/22 Additional Source Comments The information contained in this document represents components of the legal health record. It is not the complete legal health record.[facility]
--- OUTSIDE RECORDS SUMMARY | 2025-08-08 11:30 | XMS_ITS | Clinical Summary ---
Author Organization [facility] Address [address] [place] [address] Care Team Providers Care Management Nurse Rn Name Role Phone Shahriar Wheeler MD Primary Care Provider +1- [phone] Allergies No known active allergies Medications Medication Sig Dispensed Refills Start Date End Date Status albuterol (PROVENTIL HFA;VENTOLIN HFA) 108 (90 Base) MCG/ACT inhaler Inhale 2 puffs into the lungs every 6 (six) hours as needed for wheezing. 0 Active Active Problems No known active problems Family History Medical History Relation Name Comments Cancer Mother Breast Relation Name Status Comments Mother Social History Tobacco Use Types Packs/Day Years Used Date Smoking Tobacco: Former Smokeless Tobacco: Never Alcohol Use Standard Drinks/Week Comments Yes 0 (1 standard drink = 0.6 oz pur e alcohol) social Sex and Gender Information Value Date Recorded Sex Assigned at Not on file Gender Identity Not on file Sexual Orientation Not on file Last Filed Vital Signs Vital Sign Reading Time Taken Comments Blood Pressure 119/70 12/24/2020 3:25 PM EST Pulse 66 12/24/2020 3:25 PM EST Temperature 36.1 C (96.9 F) 12/24/2020 3:25 PM EST Respiratory Rate - - Oxygen Saturation - - Inhaled Oxygen Concentration - - Weight 59.4 kg (131 lb) 12/24/2020 3:25 PM EST Height 154.9 cm (5' 1 ) 12/24/2020 3:25 PM EST Body Mass Index 24.75 12/24/2020 3:25 PM EST Plan of Treatment Health Maintenance Due Date Last Done Comments Hepatitis B Vaccines (1 of 3 - 3-dose series) 1972 Hepatitis C Screening 1972 COVID-19 Vaccine (#1) 1972 Depression Screening 1984 Preventative Health Evaluation 1990 DTap / Tdap / Td (1 - Tdap) 1991 Cervical Cancer Screening (P ap Smear) 1993 Colon Cancer Screening (Colonoscopy) 2017 Breast Cancer Screening (Mammogram) 2022 Shingrix-Zoster Vaccine (1 of 2) 2022 Influenza Vaccine (#1) 2025 09/26/2011 Pneumococcal Vaccine Aged Out No long er eligible based on patient's age to complete this topic RSV Ped < 20 months Aged Out No longe r eligible based on patient's age to complete this topic Care Teams Management Nurse Rn Relationship Specialty Start Date End Date Shahriar Wheeler MD [address] [place] [address] PCP - General Internal Medicine 12/24/20
== END 2025-08-08 09:53 | disposition home or self-care (01) ==
LOC: HO.LNP 09:52
PROVIDERS: Visit Provider Internal Medicine
DX: Z00.00 Encounter for general adult medical examination without abnormal findings (principal); D70.9 Neutropenia, unspecified; Z13.6 Encounter for screening for cardiovascular disorders
CPT/HCPCS: 80053; 80061; 85025

== ENCOUNTER 2025-08-19 15:06 | Outpatient (REF) | payer MEDICARE, SELFPAY ==
--- OUTSIDE RECORDS SUMMARY | 2023-06-11 10:54 | XMS_ITS | Encounter Summary ---
Author Organization [facility] Address [address] [facility] [address] [place] [phone] Phone Care Team Providers Care Solvent Plant Treater Name Role Phone Shahriar Wheeler MD Primary Care Provider Encounter Details Date Type Department Care Team (Late st Contact Info) Description 06/11/2023 10:54 AM EDT Hospital Encounter [facility] [place] [facility] [address] [place] [address] [phone] Niharika Rm PA-C [address] [place] [phone] Social History Tobacco Use Types Packs/Day Years [...] on filedocumented in this encounter Care Teams Solvent Plant Treater Relationship Specialty Start Date End Date Shahriar Wheeler MD [address] [place] [address] Dr Sánchez, JEREMY [address] PCP - General Internal Medicine 03/20/22 documented as of this encounter Additional Source Comments The information contained in this document represents components of the legal health record. It is not the complete legal health record.[facility]
--- OUTSIDE RECORDS SUMMARY | 2024-06-03 03:15 | XMS_ITS ---
Author Organization Shahriar Wheeler MD Address [address] [place], [place] [phone] Care Team Providers Care Motor Block Mechanic Name Role Phone Shahriar Wheeler Primary Care Provider [phone] Results Component Value Reference Range Notes Complete Blood Count Auto Di ff Reviewed date:06/03/2024 12:47:21 PM Interpretation: Performing Lab:[facility], [address] [place] [phone] Notes/Report: White Blood Count 5.8 4.8-10.8 X10*3/uL [...] Panel Reviewed date:06/03/2024 12:40:27 PM Interpretation: Performing Lab:[address] [phone] Notes/Report: Triglycerides 108 <150 mg/dL Desirable Triglyceride: [...] t Reviewed date:06/03/2024 05:00:21 PM Interpretation: Performing Lab:[address] [phone] Notes/Report: Urine, Clean Catch Color Urine Yellow Appearance Urine Cloudy PH 6.5 5.0-9.0 Glucose Urine UA Negative Negative mg/dL Urine Blood Negative Negative Specific [place] - Urine 1.020 1.005-1.025 Urine Protein Negative [...] Location Date Provider Diagnosis Shahriar Wheeler MD [address] [place] [address] [place] [phone] 06/03/2024 Shahriar Wheeler Blood tests for routine general physical examination Z00.00 and Neutropenia D70.9 Assessments Encounter Date Diagnosis (ICD Code) Assessment Notes Treatment Notes Treatment Clinical Notes Section Notes 06/03/2024 Blood tests for routine general physical examination (ICD-10 - Z00.00) 06/03/2024 Neutropenia (ICD-10 - D70.9) Plan Of Treatment Next Appt Details Provider Name:Shahriar salomon, 02/16/2026 03:00:00 PM, [address] [place] [address], [address], [phone], Provider Name:Shahriar salomon, 08/13/2026 08:00:00 AM, [address] [place] [address], [place] [address], [place], [place], [phone], Provider Name:Shahriar salomon, 08/20/2026 02:30:00 PM, [address] [place] [address], [place] [address], [place], [place], [phone], Progress Notes * Imelda CORREA SDOB:1969 (55 yo F)Acc No.[id number]:06/03/2024 Progress Note Patient: Imelda FISHER Provider: Kitty Wheeler MD :1970 A ge:53 Y S ex:Female Date:06/03/2024 [facility] [address], [id number] Subjective: * Chief Complaints: * 1 . Yearly labs. * Medical History: Objective: * Vitals: Assessment: * Assessment: 1. B lood tests for routine general physical examination - Z00.00 (Primary) 2 .?Neutropenia - D70.9 Plan: * Treatment: 2. N eutropenia L AB: Comprehensive Doss. Panel Fast (Order Cancelled) L AB: Complete [...] 0 06/03/2024 Generated for Luz Marina floyd/Maria Dolores/Markitting on: 1 07:33 PM EDT
--- OUTSIDE RECORDS SUMMARY | 2024-06-21 10:30 | XMS_ITS ---
Author Organization Shahriar Wheeler MD Address [address] [place] [id number] Care Team Providers Care Cigar Head Stringer Name Role Phone Shahriar Wheeler Primary Care Provider Allergies No Known Allergies Reason For Referral Reason SCREEN FOR COLON CAN CER Diagnosis 1 Screen for colon can cer (Z12.11) Referral Organization Shahriar Wheeler MD Referring Provider First Name Shahriar Referring Provider Last Name Summer Referring Provider Speciality Internal M edicine Referred Provider [facility]ector Referred Provider Specialty Gastroentero logy General Notes Karen Haskins 06/27/2024 10:33:24 AM EDT > REFERRAL WAS FAXED ON 06/21/24, Karen Haskins 07/08/2024 08:26:45 AM EDT > [facility] , they reached out to cynthia on 06/21 by phone but they have not heard back from her . i called her and asked her to call them, Karen Haskins 07/26/2024 10:22:17 AM EDT > IN CHECKING WITH [facility]STR[facility] , THEY STILL HAVE NOT HEARD FROM CYNTHIA, Karen Haskins 08/01/2024 10:57:04 AM EDT > ANOTHER MESSAGE LEFT WITH CYNTHIA TO SEE IF SHE IS GOING TO F/U WITH REFERRAL, Karen Haskins 08/22/2024 11:36:57 AM EDT > gastro called and heard from cynthia, her appt is 11/08/24 at 11am, Karen Haskins 11/14/2024 02:41:26 PM >OFFICE NOTE RECD Referral Priority Routine Referral Appointment Date 11/08/2024 REASON FOR VISIT annual visit Medications Medication SIG (Take, Route, Frequency, Duration) Notes Start Date End Date Status Ventolin HFA 108 (90 Base) MCG/ACT 1 puff as needed Inhalation every 4 hrs 06/08/2023 Active Albuterol-Ipratropium 2.5-0.5 MG/3ML 3 mL as needed Inhalation every 6 hrs Active Social History Tobacco Use: Social History Observation Description Date Details (start date - stop date) Never Smoker NA - NA Tobacco Use/Smoking Question Answer Notes Patient is a nonsmoker Additional Findings: Tobacco Non-User Cu rrent non-smoker, currently using no form of tobacco Alcohol Screen Question Answer Notes Did you have a drink contain ing alcohol in the past year? Yes How often did you have a dri nk containing alcohol in the past year? Monthly or less (1 point) How many drinks did you have on a typical day when you were drinking in the past year? 1 or 2 drinks (0 point) How often did you have 6 or more drinks on one occasion in the past year? Never (0 point) Points 1 Interpretation Negative Problems Problem Type SNOMED Code ICD Code Onset Dates Problem Status W/U Status Risk Notes Problem 956382313 Hot flashes due to menopause (N95.1) Active confirmed Vital Signs Blood pressure systolic 124 mm Hg 06/21/20 24 Blood pressure diastolic 70 mm Hg 024 Height 61 in 06/21/2024 Weight 130 lbs 06/21/2024 BMI 24.56 kg/m2 06/21/2024 weight is up 10 pounds since 06-15-23 Encounters Encounter Location Date Provider Diagnosis Shahriar Wheeler MD [address] [place] [address] Drive [address] [place], [place] [id number] 06/21/2024 Shahriar Wheeler Annual physical exam Z00.00 ; Mild intermittent asthma with acute exacerbation J45.21 ; At high risk for breast cancer Z91.89 ; Hot flashes due to menopause N95.1 and Depression screening Z13.31 Assessments Encounter Date Diagnosis (ICD Code) Assessment Notes Treatment Notes Treatment Clinical Notes Section Notes 06/21/2024 Annual physical exam (ICD-10 - Z00.00) labs reviewed and discussed with patient, referral to dr hector for colonoscopy in winter/ REFERRAL FAXED TO [facility] FOR NEW PATIENT APPT 06/21/2024 Mild intermittent asthma with acute exacerbation (ICD-10 - J45.21) no issues, is stable, will continue current regiment 06/21/2024 At high risk for breast cancer (ICD-10 - Z91.89) followed at [facility] with mri and mammo 06/21/2024 Hot flashes due to menopause (ICD-10 - N95.1) can't take estrogen but if she wants will try gabapentin 06/21/2024 Depression screening (ICD-10 - Z13.31) negative screen Plan Of Treatment Medication Medication Name Sig Start Date Stop Date Notes Ventolin HFA 108 (90 Base) MCG/ACT 1 puff as needed Inhalation every 4 hrs 06/08/2023 Albuterol-Ipratropium 2.5-0. 5 MG/3ML 3 mL as needed Inhalation every 6 hrs Treatment Notes Assessment Notes Annual physical exam labs reviewed and d iscussed with patient, referral to dr hector for colonoscopy in winter/ REFERRAL FAXED TO [facility] FOR NEW PATIENT APPT Mild intermittent asthma wit h acute exacerbation no issues, is stable, will continue current regiment At high risk for breast cancer followed at [facility] with mri and mammo Hot flashes due to menopause can't take estrogen but if she wants will try gabapentin Depression screening negative screen Referrals Referral Date Details 06/21/2024 06/21/2024, SCREEN F OR COLON CANCER, [facility] Next Appt Details Follow Up: 1 Year, Reason: Provider Name:Shahriar salomon, 02/16/2026 03:00:00 PM, [address] [place] [address], Suite [facility], [place], [place], [id number], Provider Name:Shahriar salomon, 08/13/2026 08:00:00 AM, [address] [place] [address], Suite [facility], [place], [id number], Provider Name:Shahriar salomon, 08/20/2026 02:30:00 PM, [address] [place] [address], Suite [facility], [place], [id number], Progress Notes * Imelda CORREA SDOB:1969 (53 yo F)Acc No.[id number]:06/21/2024 Progress Notes Patient: Imelda Hidalgo Provider: Kitty Wheeler MD :1970 A ge:53 Y S ex:Female Date:06/21/2024 [facility] [address] [id number] Subjective: * Chief Complaints: * A nnual visit * HPI: D epression Screening: PHQ-9 L ittle interest or pleasure in doing things N ot at all, F eeling down, depressed, or hopeless N ot at all, T rouble falling or staying asleep, or sleeping too much N ot at all, F eeling tired or having little energy N ot at all, P oor appetite or overeating N ot at all, F eeling bad about yourself or that you are a failure, or have let yourself or your family down N ot at all, T rouble concentrating on things, such as reading the newspaper or watching television N ot at all, M oving or speaking so slowly that other people could have noticed; or the opposite, being so fidgety or restless that you have been moving around a lot more than usual N ot at all, T houghts that you would be better off or of hurting yourself in some way N ot at all, T otal Score 0 . I nterpretation and Intervention D epression Screening Findings N egative, F ollow-Up for Depression : review of PHQ-9 found negative result, no follow-up needed. C ommunication Needs: Communication Needs D oes the patient have a hearing impairment N o, D oes the patient have a vision impairment? Y es, I f yes, what is the vision impairment? G lasses, D oes the patient have a cognition impairment? N o. S ASHLIE Questions: SDOH Questions I n the past year have you been worried about losing housing? N o, I n the past year have you or any family members you live with been unable to get any of the following when it was really needed? Check all that apply: N one. S ymptom(s): patient is a 53 yo female here for annual visit with review of recent labs and follow up of chronic issues. * ROS: G eneral/Constitutional: Patient denies f atigue , headache. C hange in appetite?denies. C hills d enies. F ever d enies. O phthalmologic: Blurred vision d enies. D ischarge d enies. P ain d enies. E NT: Patient denies d ecreased sense of smell , any loss of taste , sore throat. D ecreased hearing d enies. S ore throat d enies. S wollen glands d enies. E ndocrine: Cold intolerance d enies. E xcessive thirst d enies. H eat intolerance d enies. W eight loss d enies. R espiratory: Cough d enies. S hortness of breath at rest d enies. S hortness of breath with exertion d enies. W heezing d enies. C ardiovascular: Chest pain at rest d enies. C hest pain with exertion?denies. I rregular heartbeat d enies. S hortness of breath d enies. ? G astrointestinal: Abdominal pain d enies. C hange in bowel habits d enies. D iarrhea d enies. N ausea d enies. R ectal bleeding d enies. V omiting d enies . G enitourinary: Blood in urine d enies. D ifficulty urinating d enies. F requent urination d enies. U rinary incontinence D enies. M usculoskeletal: Patient denies m uscle aches. P ainful joints d enies. W eakness d enies. P eripheral Vascular: Patient denies r ed and blue toes. S kin: Dry skin d enies. I tching d enies. D enies?Mole(s), changes in moles, new moles or any lesions of concern. D enies P hotosensitivity. R bryon d enies. N eurologic: Dizziness d enies. F ainting d enies. H eadache?denies. * Medical History: * Surgical History: * Hospitalization/Major Diagno stic Procedure: * Family History: F ather: 70 yrs, Healthy. M other: 56 yrs, breast cancer. 1 brother(s) - healthy. 3 daughter(s) . . no history of sudden in family and no known heart disease. Mother- Breast cancer Father-Alzheimer's, Denies mental health/substance abuse family history, No pertinent family medical history, Denies mental health/substance abuse family history, Denies mental health/substance abuse family history. * Social History: T obacco Use: T obacco Use/Smoking P atient is a n onsmoker, A dditional Findings: Tobacco Non-User C urrent non-smoker, currently using no form of tobacco. D rugs/Alcohol: A lcohol Screen D id you have a drink containing alcohol in the past year? Y es, H ow often did you have a drink containing alcohol in the past year? M onthly or less (1 point), H ow many drinks did you have on a typical day when you were drinking in the past year? 1 or 2 drinks (0 point), H ow often did you have 6 or more drinks on one occasion in the past year? N ever (0 point), P oints 1 , I nterpretation N egative. M iscellaneous: C affeine: yes, frequency:, 1-2 cups per day. Children: yes. no Community involvements. Exercise: yes, ikingchuy for 30 minutes cycling class cardio class. Home smoke detector use: yes. Housing: owning. Living with: spouse. Marital status: . Occupation: weeks/months/years, works full-time. no Travel outside of the [place]. * Medications: T akingAlbuterol-Ipratropium 2.5-0.5 MG/3ML Solution 3 mL as needed Inhalation every 6 hrsVentolin HFA 108 (90 Base) MCG/ACT Aerosol Solution 1 puff as needed Inhalation every 4 hrsMedication List reviewed and reconciled with the patientTaking Albuterol-Ipratropium 2.5-0.5 MG/3ML Solution 3 mL as needed Inhalation every 6 hrsTaking Ventolin HFA 108 (90 Base) MCG/ACT Aerosol Solution 1 puff as needed Inhalation every 4 hrsMedication List reviewed and reconciled with the patient * Allergies: N .K.D.A.yes[Allergies Verified] Objective: * Vitals: H t: 61, Wt:130, BMI:24.56, BP:124/70 weight is up 10 pounds since 06-15-23. * P ast Orders: L ab:Comprehensive Met. Panel (Order Date - 06/03/2024) (Collection Date - 06/03/2024) Value Reference Range Sodium 142 135-145 - mmol/L Bilirubin Total 0.7 0.0-1.0 - mg/dL Aspartate Amino Transferase 19 5-31 - U/L Alanine Aminotransferase 23 0-31 - U/L Total Protein 6.6 6.5-8.0 - g/dL Albumin Level 4.4 3.5-5.0 - g/dL Alkaline Phosphatase 65 39-117 - U/L Potassium 4.1 3.3-5.1 - mmol/L Chloride 106 96-108 - mmol/L Carbon Dioxide 29 22-29 - mmol/L Anion Gap 11 L 12-20 - Blood Urea Nitrogen 9 9-16 - mg/dL Creatinine 0.85 0.5-1.4 - mg/dL Estimated Glomerular Filt Rate > 60 - Glucose Random 104 60-115 - mg/dL Calcium 10.1 8.4-10.2 - mg/dL L ab:Complete Blood Count Auto Diff (Order Date - 06/03/2024) (Collection Date - 06/03/2024) Value Reference Range White Blood Count 5.8 4.8-10.8 - X10*3/uL Red Blood Count 4.77 4.20-5.50 - X10*6/uL Hemoglobin 14.4 12.0-16.0 - g/dl Hematocrit 42.7 37.0-47.0 - % Mean Corpuscular Volume 89.5 80.0-98.0 - fL Mean Corpuscular Hemoglobin 30.2 27.0-33.0 - pg Mean Corpuscular HGB Conc 33.7 31.0-35.0 - g/ dl Red Cell Distribution Width 12.6 11.0-16.0 - % Platelet Count 235 160-400 - X10*3/uL Mean Platelet Volume 10.9 9.4-12.3 - fL Neutrophils Percent Auto 59.7 45-73 - % Imm Gran Pct Auto 0.2 0.0-0.4 - % Lymphocytes Percent Auto 25.0 20-40 - % Monocytes Percent Auto 7.9 2-11 - % Eosinophils Percent Auto 6.7 H 0-4 - % Basophils Percent Auto 0.5 0-2 - % NRBC Pct Auto 0.0 0.0-0.2 - /100WBC Neutrophils Absolute Auto 3.5 2.0-8.3 - x10* 3/uL Imm Gran Abs Auto 0.01 0.00-0.03 - X10*3/uL Lymphocytes Absolute Auto 1.5 1.2-4.9 - X10* 3/uL Monocytes Absolute Auto 0.5 0.1-1.2 - X10*3/ uL Eosinophils Absolute Auto 0.4 0.0-0.4 - X10* 3/uL Basophils Absolute Auto 0.0 0.0-0.2 - X10*3/ uL NRBC Abs Auto 0.000 0.0-0.012 - X10*3/uL L ab:Lipid Panel (Order Date - 06/03/2024) (Collection Date - 06/03/2024) Value Reference Range Triglycerides 108 <150 - mg/dL Cholesterol 203 H <200 - mg/dL LDL Cholesterol Calculated 122 H <100 - mg/dL HDL Cholesterol 60 >40 - mg/dL L ab:UA ClnCatch+Micro w/rflx Cult (Order Date - 06/03/2024) (Collection Date - 06/03/2024) Value Reference Range Color Urine Yellow - Appearance Urine Cloudy - PH 6.5 5.0-9.0 - Glucose Urine UA Negative Negative - mg/dL Urine Blood Negative Negative - Specific [place] - Urine 1.020 1.005-1.025 - Urine Protein Negative Neg-Trace - mg/dL Urine Ketones Negative Negative - mg/dL Nitrite Urine Negative Negative - Leukocyte Esterase Urine Moderate (2+) A Negative - RBC Urine 0-2 0-2 - /HPF WBC Urine 11-20 A 0-5 - /HPF Squamous Epithelial Cell Urine 3-5 0-2 - /HP F Bacteria Urine Trace None Seen - Hyaline Casts Urine 0-2 0-2 - /LPF * Examination: G eneral Examination: GENERAL APPEARANCE: w ell developed, well nourished, in no acute distress. HEAD: n ormocephalic, atraumatic. EYES: p upils equal, round, reactive to light and accommodation, sclera non-icteric. EARS: n ormal. ORAL CAVITY: m ucosa moist. THROAT: c lear. NECK/THYROID: n stephania supple, full range of motion, no cervical lymphadenopathy, no bruits. SKIN: w arm and dry, no suspicious lesions. with small nodules on elbo tht comes and goes. HEART: r egular rate and rhythm, S1, S2 normal, no murmurs.? LUNGS: c lear to auscultation bilaterally. BREASTS: N o mass, no lump. ABDOMEN: s oft, nontender, nondistended, bowel sounds present, normal, no organomegaly , no masses palpable. RECTAL EXAM: d one by senior cisco network engineer. FEMALE GENITOURINARY: d one by senior cisco network engineer. EXTREMITIES: n o clubbing, cyanosis, or edema. NEUROLOGIC: n onfocal, motor strength normal upper and lower extremities, sensory exam intact. Assessment: * Assessment: 1. A nnual physical exam - Z00.00 (Primary) 2 . M ild intermittent asthma with acute exacerbation - J45.21 3 . A t high risk for breast cancer - Z91.89 4 . H ot flashes due to menopause - N95.1 5 . D epression screening - Z13.31 Plan: * Treatment: 2. M ild intermittent asthma with acute exacerbation Continue Albuterol-Ipratropium Solution, 2.5-0.5 MG/3ML, 3 mL as needed, Inhalation, every 6 hrs;?Continue Ventolin HFA Aerosol Solution, 108 (90 Base) MCG/ACT, 1 puff as needed, Inhalation, every 4 hrs. Notes: no issues, is stable, will continue current regiment. 3. A t high risk for breast cancer Notes: followed at [facility] with mri and mammo. 4. H ot flashes due to menopause Notes: can't take estrogen but if she wants will try gabapentin. 5. D epression screening Notes: negative screen. 6. O thers Referral To:[facility] Reason:SCREEN FOR COLON CANCER * Procedure Codes: * Follow Up: 1 Year * * Sign off status: Completed true * Provider: Kitty Wheeler MD Date: 0 06/21/2024 Generated for Luz Marina floyd/Maria Dolores/eTransmitting on: 1 07:33 PM EDT History and Physical Notes * HPI (History of Present Illness) Category Sub-Category Detail Notes Category Not es Symptom(s) patient is a 53 yo female here for annual visit with review of recent labs and follow up of chronic issues. Depression Screening PHQ-9 Little inte rest or pleasure in doing things: Not at all Feeling down, depressed, or hopeless: No t at all Trouble falling or staying asleep, or sl eeping too much: Not at all Feeling tired or having little energy: N ot at all Poor appetite or overeating: Not at all Feeling bad about yourself o r that you are a failure, or have let yourself or your family down: Not at all Trouble concentrating on thi ngs, such as reading the newspaper or watching television: Not at all Moving or speaking so slowly that other people could have noticed; or the opposite, being so fidgety or restless that you have been moving around a lot more than usual: Not at all Thoughts that you would be b rustam off or of hurting yourself in some way: Not at all Total Score: 0 Interpretation and Intervention Depression Seymour allen Findings: Negative Follow-Up for Depression: : review of PH Q-9 found negative result, no follow-up needed SDOH Questions SDOH Questions In the past year have you been worried about losing housing?: No In the past year have you or any family members you live with been unable to get any of the following when it was really needed? Check all that apply:: None Communication Needs Communication Needs Does the patient have a hearing impairment: No Does the patient have a vision impairmen t?: Yes If yes, what is the vision impairment?: Glasses Does the patient have a cognition impair ment?: No Examination Category Sub-Category Detail Notes Category Not es General Examination GENERAL APPEARANCE: well dev eloped, well nourished, in no acute distress HEAD: normocephalic, atrau matic EYES: pupils equal, round, reactive to light and accommodation, sclera non-icteric EARS: normal THROAT: clear NECK/THYROID: neck supple, full ra nge of motion, no cervical lymphadenopathy, no bruits HEART: regular rate and rhy thm, S1, S2 normal, no murmurs LUNGS: clear to auscultatio n bilaterally ABDOMEN: soft, nontender, non distended, bowel sounds present, normal, no organomegaly , no masses palpable NEUROLOGIC: nonfocal, motor stre ngth normal upper and lower extremities, sensory exam intact SKIN: warm and dry, no james picious lesions. with small nodules on elbo tht comes and goes EXTREMITIES: no clubbing, cyanosi s, or edema BREASTS: No mass, no lump RECTAL EXAM: done by senior cisco network engineer FEMALE GENITOURINARY: done by senior cisco network engineer ORAL CAVITY: mucosa moist Consultation Request Notes Referral Date Referring Provider Referred Provider Not es 06/21/2024 Shahriar Wheeler Tuyyab SCREEN FO R COLON CANCER
--- OUTSIDE RECORDS SUMMARY | 2025-06-26 04:45 | XMS_ITS ---
Author Organization Shahriar Wheeler MD Address [address] [place] [phone] Care Team Providers Care Loading Machine Operator Helper Name Role Phone Shahriar Wheeler Primary Care Provider REASON FOR VISIT FASTING LABS Encounters Encounter Location Date Provider Diagnosis Shahriar Wheeler MD [address] [place] [address] [place] [phone] 06/26/2025 Shahriar Wheeler Blood tests for routine general physical examination Z00.00 and Neutropenia D70.9 Assessments Encounter Date Diagnosis (ICD Code) Assessment Notes Treatment Notes Treatment Clinical Notes Section Notes 06/26/2025 Blood tests for routine general physical examination (ICD-10 - Z00.00) 06/26/2025 Neutropenia (ICD-10 - D70.9) Plan Of Treatment Pending Test Test Name Order Date Complete Blood Count Auto Diff 5 Comprehensive [place]. Panel Fast 5 Lipid Panel 06/26/2025 UA ClnCatch+Micro w/rflx Cult 06/26/2025 Next Appt Details Provider Name:Shahriar salomon, 02/16/2026 03:00:00 PM, [address] [place] [address], Suite [facility], [place], [place], [phone], Provider Name:Shahriar salomon, 08/13/2026 08:00:00 AM, [address] [place] [address], Suite [facility], [place], [place], [phone], Provider Name:Shahriar salomon, 08/20/2026 02:30:00 PM, [address], [address], [place], [place], [phone], Progress Notes * Imelda CORREA SDOB:1969 (55 yo F)Acc No.[id number]:06/26/2025 Progress Note Patient: Imelda FISHER Provider: Kitty Wheeler MD :1970 A ge:54 Y S ex:Female Date:06/26/2025 [facility]: [address], [id number] Subjective: * Chief Complaints: * 1 . FASTING LABS. * Medical History: Objective: * Vitals: Assessment: * Assessment: 1. B lood tests for routine general physical examination - Z00.00 (Primary) 2 .?Neutropenia - D70.9 Plan: * Treatment: 2. N eutropenia L AB: Complete Blood Count Auto Diff L AB: Comprehensive [place]. Panel Fast L AB: Lipid Panel L [...]
--- OUTSIDE RECORDS SUMMARY | 2025-06-27 12:30 | XMS_ITS ---
Author Organization Shahriar Wheeler MD Address [address] [place], [place] [phone] Care Team Providers Care Full Stack Software Engineer Name Role Phone Shahriar Wheeler Primary Care Provider [phone] Allergies No Known Allergies REASON FOR VISIT [...] Location Date Provider Diagnosis Shahriar Wheeler MD [address] [place] [address] [address] [place], [place] [phone] 06/27/2025 Shahriar Wheeler Plan Of Treatment Next Appt Details Provider Name:Shahriar salomon, 02/16/2026 03:00:00 PM, [address] [place] [address], [address], [place], [place], [phone], Provider Name:Shahriar salomon, 08/13/2026 08:00:00 AM, [address] [place] [address], Suite [facility], [place], [place], [phone], Provider Name:Shahriar Lagunas ier, 08/20/2026 02:30:00 PM, [address], [address], [place], [phone], Progress Notes * Imelda CORREA SDOB:1969 (55 yo F)Acc No.[id number]:06/27/2025 Progress Notes Patient: Imelda FISHER Provider: Kitty Wheeler MD :1970 A ge:54 Y S ex:Female Date:06/27/2025 Address: [address], [place], [id number] Subjective: * Chief Complaints: * 1 . [...] kidney stones, Going to get colonoscopy evan 2023. * Family History: F ather: 70 yrs, [...] Children: yes. Community involvements: no. Exercise: yes, [place] for 30 minutes cycling class cardio class. [...] 0 06/27/2025 Generated for Luz Marina floyd/Maria Dolores/Wendy on: 1 07:33 PM EDT History and [...]
--- OUTSIDE RECORDS SUMMARY | 2025-08-08 04:15 | XMS_ITS ---
Author Organization Shahriar Wheeler MD Address [address] [place], [place] [phone] Care Team Providers Care Grinder Outside Diameter Name Role Phone Shahriar Wheeler Primary Care Provider Results Component Value Reference Range Notes Complete Blood Count Auto Di ff Reviewed date:08/08/2025 12:47:21 PM Interpretation: Performing Lab:[facility], [address] [place] [phone] Notes/Report: White Blood Count 5.2 4.8-10.8 X10*3/uL [...] Auto 0.000 0.0-0.012 X10*3/uL Lipid Panel Reviewed date:08/08/2025 12:42:19 PM Interpretation: Performing Lab:[facility], [address] [place] [phone] Notes/Report: Triglycerides 189 <150 mg/dL Desirable Triglyceride: [...] Date Provider Diagnosis Shahriar Wheeler MD [address] [facility] [address] [place], [place] [phone] 08/08/2025 Shahriar Wheeler Blood tests for routine general physical examination Z00.00 and Neutropenia D70.9 Assessments Encounter Date Diagnosis (ICD Code) Assessment Notes Treatment Notes Treatment Clinical Notes Section Notes 08/08/2025 Blood tests for routine general physical examination (ICD-10 - Z00.00) 08/08/2025 Neutropenia (ICD-10 - D70.9) Plan Of Treatment Pending Test Test Name Order Date Comprehensive [place]. Panel Fast 10/17/202 5 UA ClnCatch+Micro w/rflx Cult 08/08/2025 Next Appt Details Provider Name:Shahriar Lagunas ier, 02/16/2026 03:00:00 PM, [address], [address], [place], [place], [phone], Provider Name:Shahriar Lagunas ier, 08/13/2026 08:00:00 AM, [address], [address], [place], [place], [phone], Provider Name:Shahriar Lagunas ier, 08/20/2026 02:30:00 PM, [address] [facility], [address], [place], [place], [phone], Progress Notes * SUNNY Imelda SDOB:1969 (55 yo F)Acc No.[id number]:08/08/2025 Progress Note Patient: Imelda FISHER Provider: Kitty Wheeler MD :1970 A ge:55 Y S ex:Female Date:08/08/2025 Address: [address], [place], [id number] Subjective: * Chief Complaints: * 1 . Annual labs. * Medical History: Objective: * Vitals: Assessment: * Assessment: 1. B lood tests for routine general physical examination - Z00.00 (Primary) 2 .?Neutropenia - D70.9 Plan: * Treatment: 2. N eutropenia L AB: Comprehensive [place]. Panel Fast L AB: UA ClnCatch+Micro w/rflx Cult L AB: Complete Blood Count Auto Diff (Collection Date & Time - 08/08/2025 08:15 AM) L AB: Lipid Panel (Collection Date & Time - 08/08/2025 08:15 AM) * Procedure Codes: 3 6415 VENIPUNCT, ROUTINE* * * The named appointment provid er may or may not be the originator of this progress note, and it is not deemed complete until electronically signed by the appointment provider. Sign off status: Pending * Provider: Kitty Wheeler MD Date: 1 Generated for Luz Marina floyd/Maria Dolores/Wendy on: 1 07:33 PM EDT
--- OUTSIDE RECORDS SUMMARY | 2025-08-19 10:30 | XMS_ITS ---
Author Organization Shahriar Wheeler MD Address [address] [place], [place] [id number] Care Team Providers Care Client Engagement Manager Name Role Phone Shahriar Wheeler Primary Care Provider [phone] Allergies No Known Allergies Results Component Value Reference Range Notes UA ClnCatch+Micro w/rflx Cul t Reviewed date:08/19/2025 05:16:00 PM Interpretation: Performing Lab:[facility], [address] [place] [id number] Notes/Report: Urine, Clean Catch Color Urine Yellow Appearance Urine Clear PH 6.0 5.0-9.0 Glucose Urine UA Negative Negative mg/dL Urine Blood Negative Negative Specific [place] - Urine 1.015 1.005-1.025 Urine Protein Negative Neg-Trace mg/dL Urine Ketones Negative Negative mg/dL Nitrite Urine Negative Negative Leukocyte Esterase Urine Small (1+) Negative RBC Urine 0-2 0-2 /HPF WBC Urine 0-5 0-5 /HPF Squamous Epithelial Cell Urine 0-2 0-2 /HPF Bacteria Urine None Seen None Seen Hyaline Casts Urine 0-2 0-2 /LPF REASON FOR VISIT Annual Medications Medication SIG (Take, Route, Frequency, Duration) [...] Never (0 point) Points 1 Interpretation Negative Vital Signs Blood pressure systolic 118 mm Hg 08/19/20 25 Blood pressure diastolic 70 mm Hg 025 Height 61 in 08/19/2025 Weight 138 lbs 08/19/2025 BMI 26.07 kg/m2 08/19/2025 weight is up 8 pounds since 06-21-24 Encounters Encounter Location Date Provider Diagnosis Shahriar Wheeler MD [address] [place] [address] [place] [phone] 08/19/2025 Shahriar Wheeler Adult general medica l examination Z00.00 ; Elevated LFTs R79.89 ; Mild intermittent asthma with acute exacerbation J45.21 and Depression screening Z13.31 Assessments Encounter Date Diagnosis (ICD Code) Assessment Notes Treatment Notes Treatment Clinical Notes Section Notes 08/19/2025 Adult general medical examination (ICD-10 - Z00.00) labs reiewed and discussed with patient 08/19/2025 Elevated LFTs (ICD-10 - R79.89) has no history of excess alcohol and not on any meds. liver exam is normal will just repeat and if still high will get us of liver. suspect it is related to her weight gain 08/19/2025 Mild intermittent asthma with acute exacerbation (ICD-10 - J45.21) stable, will continue current regiment 08/19/2025 Depression screening (ICD-10 - Z13.31) negative screen Plan Of Treatment Medication Medication Name Sig Start Date Stop Date Notes Ventolin HFA 108 (90 Base) MCG/ACT 1 puff as needed Inhalation every 4 hrs 06/08/2023 Albuterol-Ipratropium 2.5-0. 5 MG/3ML 3 mL as needed Inhalation every 6 hrs Treatment Notes Assessment Notes Adult general medical examination labs r eiewed and discussed with patient Elevated LFTs has no history of ex cess alcohol and not on any meds. liver exam is normal will just repeat and if still high will get us of liver. suspect it is related to her weight gain Mild intermittent asthma wit h acute exacerbation stable, will continue current regiment Depression screening negative screen Next Appt Details Follow Up: 6 Months, Reason: Provider Name:Shahriar Lagunas ier, 02/16/2026 03:00:00 PM, [address] [place] [address], [address], [place], [place], [phone], Provider Name:Shahriar Lagunas ier, 08/13/2026 08:00:00 AM, [address] [place] [address], Suite [facility], [place], [place], [phone], Provider Name:Shahriar Lagunas ier, 08/20/2026 02:30:00 PM, [address] [place] [address], [place] [address], [place], [place], [phone], Progress Notes * Imelda CORREA SDOB:1969 (55 yo F)Acc No.[id number]:08/19/2025 Progress Notes Patient: [place] Imelda CORTES [place] Provider: Kitty Wheeler MD :1970 A ge:55 Y S ex:Female Date:08/19/2025 Address: [address], [place], [id number] Subjective: * Chief Complaints: * 1 . Annual. * HPI: S ymptom(s): patient is a 55 yo female here for annual visit with review of recent labs and follow up of chronic issues. D epression Screening: PHQ-9 L ittle interest [...] needed? Check all that apply: N one. * ROS: G eneral/Constitutional: Change in appetite d enies. C hills d enies. F ever d enies. O phthalmologic: Blurred vision d enies. D ischarge d enies. P ain d enies. E NT: Decreased hearing d enies. S ore throat d enies.?Swollen glands d enies. E ndocrine: Cold intolerance [...] U rinary incontinence D enies. M usculoskeletal: Painful joints d enies. W eakness d enies. ? S kin: Dry skin d enies. I tching d enies. D enies?Mole(s), changes in moles, new moles or any lesions of concern. D enies P hotosensitivity. R bryon d enies. N eurologic: Dizziness d enies. F ainting d enies. H eadache?denies. * Medical History: H x of kidney [...] yes. Community involvements: no. Exercise: yes, iking, walks for 30 minutes cycling class cardio class. Home smoke detector use: yes. Housing: owning. Living with: spouse. Marital status: . Occupation: weeks/months/years, works full-time. * Medications: T aking Albuterol-Ipratropium 2.5-0.5 MG/3ML Solution 3 mL as needed Inhalation every 6 hrs , Taking Ventolin HFA 108 (90 Base) MCG/ACT Aerosol Solution 1 puff as needed Inhalation every 4 hrs , Medication List reviewed and reconciled with the patient * Allergies: N .K.D.A. Objective: * Vitals: H t: 61, Wt: 138, BMI:26.07, BP:118/70, Wt-k.6. weight is up 8 pounds since 06-21-24. * Examination: G eneral Examination: GENERAL APPEARANCE: [...] w arm and dry, no suspicious lesions. HEART: r egular rate and rhythm, S1, S2 normal, no murmurs.? LUNGS: c lear to auscultation bilaterally. BREASTS: N o mass, no lump. ABDOMEN: s oft, nontender, nondistended, bowel sounds present, normal, no organomegaly , no masses palpable. RECTAL EXAM: d one by industrial controller. FEMALE GENITOURINARY: d one by industrial controller. EXTREMITIES: n o clubbing, cyanosis, or edema. NEUROLOGIC: n onfocal, motor strength normal upper and lower extremities, sensory exam intact. Assessment: * Assessment: 1. A dult general medical examination - Z00.00 (Primary) 2 . E levated LFTs - R79.89 3 . M ild intermittent asthma with acute exacerbation - J45.21 ? 4 . D epression screening - Z13.31 Plan: * Treatment: 2. E levated LFTs Notes: has no history of excess alcohol and not on any meds. liver exam is normal will just repeat and if still high will get us of liver. suspect it is related to her weight gain 3. M ild intermittent asthma with acute exacerbation Continue Albuterol-Ipratropium Solution, 2.5-0.5 MG/3ML, 3 mL as needed, Inhalation, every 6 hrs;?Continue Ventolin HFA Aerosol Solution, 108 (90 Base) MCG/ACT, 1 puff as needed, Inhalation, every 4 hrs. Notes: stable, will continue current regiment 4. D epression screening Notes: negative screen * Follow Up: 6 Months * * The named appointment provid er may or may not be the originator of this progress note, and it is not deemed complete until electronically signed by the appointment provider. Sign off status: Pending * Provider: Kitty Wheeler MD Date: Generated for Luz Marina floyd/Maria Dolores/Wendy on: 07:32 PM EDT History and Physical Notes * HPI (History of Present Illness) Category Sub-Category Detail Notes Category Not es Symptom(s) patient is a 55 yo female here for annual visit with [...] SKIN: warm and dry, no james picious lesions EXTREMITIES: no clubbing, cyanosi s, or edema BREASTS: No mass, no lump RECTAL EXAM: done by industrial controller FEMALE GENITOURINARY: done by industrial controller ORAL CAVITY: mucosa moist
[2025-08-19 15:18] LABS: Appearance Urine Clear; Glucose Urine UA Negative (Negative); PH 6.0 (5.0-9.0); Specific Gravity - Urine 1.015 (1.005-1.025); UMIC TRIGGER UACC YES
[2025-08-19 15:28] LABS: UACC Culture Trigger YES
--- OUTSIDE RECORDS SUMMARY | 2025-08-19 19:34 | XMS_ITS | Patient Health Record ---
Author Organization Shahriar Wheeler MD Address [address] [place], [place] [phone] Care Team Providers Care Blood Bank Supervisor Name Role Phone Shahriar Wheeler Primary Care Provider Allergies No Known Allergies Results Component Value Reference Range Notes Comprehensive Met. Panel Reviewed date:08/08/2025 12:41:59 PM Interpretation: Performing Lab:[address] [phone] Notes/Report: Sodium 143 135-145 mmol/L Potassium 4.3 [...] U/L Complete Blood Count Auto Di ff Reviewed date:08/08/2025 12:47:21 PM Interpretation: Performing Lab:[address] [place] [address] Notes/Report: White Blood Count 5.2 4.8-10.8 X10*3/uL [...] Panel Reviewed date:08/08/2025 12:42:19 PM Interpretation: Performing Lab:[facility], [address] [place] [phone] Notes/Report: Triglycerides 189 <150 mg/dL Desirable Triglyceride: [...] disease. UA ClnCatch+Micro w/rflx Cul t Reviewed date:08/19/2025 05:16:00 PM Interpretation: Performing Lab:[facility], [address] [place] [phone] Notes/Report: Urine, Clean Catch Color Urine Yellow Appearance Urine Clear PH 6.0 5.0-9.0 Glucose Urine UA Negative Negative mg/dL Urine Blood Negative Negative Specific [place] - Urine 1.015 1.005-1.025 Urine Protein Negative Neg-Trace mg/dL Urine Ketones Negative Negative mg/dL Nitrite Urine Negative Negative Leukocyte Esterase Urine Small (1+) Negative RBC Urine 0-2 0-2 /HPF WBC Urine 0-5 0-5 /HPF Squamous Epithelial Cell Urine 0-2 0-2 /HPF Bacteria Urine None Seen None Seen Hyaline Casts Urine 0-2 0-2 /LPF Reason For Referral No Information Medications Medication [...] Administered Moderna Fluarix Quadrivalent IM Intramuscular 08/10/2021 Administe red SARS-COV-2 Moderna Unknown 08/16/2021 Administered Fluarix Quadrivalent IM Intramuscular 08/26/2022 Administe red Fluarix Quadrivalent IM Intramuscular 07/14/2023 Administe stu Social History Tobacco Use: Social History Observation [...] Status W/U Status Risk Notes Problem Neutropenia (106825430) Neutropenia (D70.9) Active confirmed Problem 592055750 Mild intermittent asthma with acute exacerbation (J45.21) Active confirmed Problem 61413759 PVT (paroxysmal ventricular tachycardia) (I47.2) Active confirmed Problem 830061800 Hot flashes due to menopause (N95.1) Active confirmed Vital Signs Blood pressure diastolic 70 mm Hg 08/19/2025 leoncio ght is up 8 pounds since 06-21-24 Height 61 in 08/19/2025 weight is up 8 pounds since 06-21-24 Blood pressure systolic 118 mm Hg 08/19/2025 weig ht is up 8 pounds since 06-21-24 Weight 138 lbs 08/19/2025 weight is up 8 pounds since 06-21-24 BMI 26.07 kg/m2 08/19/2025 weight is up 8 pounds since 06-21-24 Encounters Encounter Location Date Provider Diagnosis Shahriar Wheeler MD [address] [place] [address] Drive [address] [place] [phone] 08/08/2025 Shahriar Wheeler Blood tests for routine general physical examination Z00.00 and Neutropenia D70.9 Shahriar Wheeler MD [address] [place] [address] Drive [address] [place] [phone] 08/19/2025 Shahriar Wheeler Adult general medica l examination Z00.00 ; Elevated LFTs R79.89 ; Mild intermittent asthma with acute exacerbation J45.21 and Depression screening Z13.31 Assessments Encounter Date Diagnosis (ICD Code) Assessment Notes Treatment Notes Treatment Clinical Notes Section Notes 08/08/2025 Blood tests for routine general physical examination (ICD-10 - Z00.00) 08/19/2025 Adult general medical examination (ICD-10 - Z00.00) labs reiewed and discussed with patient 08/19/2025 Elevated LFTs (ICD-10 - R79.89) has no history of excess alcohol and not on any meds. liver exam is normal will just repeat and if still high will get us of liver. suspect it is related to her weight gain 08/08/2025 Neutropenia (ICD-10 - D70.9) 08/19/2025 Mild intermittent asthma with acute exacerbation (ICD-10 - J45.21) stable, will continue current regiment 08/19/2025 Depression screening (ICD-10 - Z13.31) negative screen Plan Of Treatment Pending Test Test Name Order Date Comprehensive [place]. Panel Fast UA ClnCatch+Micro w/rflx Cult 08/08/2025 Future Test Test Name Order Date MM diagnostic mammo BI 06/14/2021 Next Appt Details Provider Name:Shahriar salomon, 02/16/2026 03:00:00 PM, [address] [place] [address], [address], [phone], Provider Name:Shahriar salomon, 08/13/2026 08:00:00 AM, [address] [place] [address], [address] [facility], [place], [place], [phone], Provider Name:Shahriar salomon, 08/20/2026 02:30:00 PM, [address] [place] [address], [address], [phone], Insurance Providers Payer Name Payer Address Payer Phone Subscriber Number Group Number Insured Name Patient Relationship to Insured Coverage Start Date Coverage End Date [employer] [address] [place], [place] [id number] [place] , Imelda Self - patient is the insured Medical (General) History Medical History History ICD Code Hx of kidney stones going to get colonoscopy 2022
--- OUTSIDE RECORDS SUMMARY | 2025-08-19 19:34 | XMS_ITS | Clinical Summary ---
Author Organization [facility] Address [address] [facility] [address] [place] [address] Phone Care Team Providers Care Game Protector Name Role Phone Shahriar Wheeler MD Primary [...] topic Medical Devices Not on file Insurance [facility] PPO EPO [facility] PPO EPO [facility] PPO EPO [facility] PPO [facility]PO [facility] PPO EPO [facility] PPO EPO Care Teams Game Protector Relationship Specialty Start Date End Date Shahriar Wheeler MD [address] [place] [address] [place] [address] PCP - General Internal Medicine 03/20/22 Additional Source Comments The information contained in this document represents components of the legal health record. It is not the complete legal health record.[facility]
--- OUTSIDE RECORDS SUMMARY | 2025-08-19 19:34 | XMS_ITS | Clinical Summary ---
Author Organization [facility] Address [address] [place] [address] Care Team Providers Care Import Customer Service Manager Name Role Phone Shahriar Wheeler MD Primary Care Provider +1- [phone] Allergies No known active allergies Medications Medication [...] age to complete this topic Care Teams Import Customer Service Manager Relationship Specialty Start Date End Date Shahriar Wheeler MD [address] [place] [address] PCP - General Internal Medicine 12/24/20
== END 2025-08-19 15:07 | disposition home or self-care (01) ==
LOC: HO.LNP 15:06
PROVIDERS: Visit Provider Internal Medicine
DX: Z00.00 Encounter for general adult medical examination without abnormal findings (principal)
CPT/HCPCS: 81001; 87086